=== PATIENT | female | born 1995 | race Two or more races ===

== ENCOUNTER 2022-11-22 11:56 | Observation (INO) | payer SELFPAY ==
[~2022-11-22] VITALS: Ht 167.6 cm; Wt 56.2 kg
[2022-11-22] MEDS ORDERED: PNV1TABL76 MT (12:21)
[2022-11-22] MEDS ORDERED: LACTATED RINGERS 500 ML IV ONE (12:30)
[2022-11-22] MEDS ORDERED: ACETAMINOPHEN 500MG TABLET PO PRN (12:30)
[2022-11-22 13:25] LABS: CLARITY URINE CLOUDY (CLEAR); COLOR URINE DARK YELLOW (YELLOW); KETONES URINE 4+ (NEGATIVE); LEUKOCYTE ESTERASE URINE 2+ (NEGATIVE); NITRITE URINE NEGATIVE (NEGATIVE); OCCULT BLOOD URINE NEGATIVE (NEGATIVE); PROTEIN URINE 1+ (NEGATIVE); SPECIFIC GRAVITY URINE 1.026 (1.005-1.030)
[2022-11-22] MEDS ORDERED: CITRIC ACID/SODIUM CITRATE SOLN 30ML UDC PO SCH (13:30)
[2022-11-22] MEDS ORDERED: LACTATED RINGERS 1,000 ML IV SCH (14:30)
[2022-11-22] MEDS ORDERED: CEFAZOLIN 2,000 MG in DEXT 5% WATER 100 ML IV NR (14:45)
[2022-11-22 15:30] LABS: *AMPHETAMINES SCREEN URINE NEGATIVE (NEGATIVE); *BARBITURATES SCREEN URINE NEGATIVE (NEGATIVE); *BENZODIAZEPINES SCREEN URINE NEGATIVE (NEGATIVE); *COCAINE SCREEN URINE NEGATIVE (NEGATIVE); METHADONE URINE SCREEN NEGATIVE (NEGATIVE); OPIATES URINE SCREEN NEGATIVE (NEGATIVE); PHENCYCLIDINE URINE SCREEN NEGATIVE (NEGATIVE)
[2022-11-22 15:56] LABS: CANNABINOID URINE SCREEN PRESUMTIVE POSITIVE (NEGATIVE)
[2022-11-28 04:07] LABS: CANNABINOID CONFIRMATION URINE Positive (.)
== END 2022-11-22 16:22 | disposition home or self-care (01) ==
LOC: 8 EST LDRP 11:56
PROVIDERS: ADMIT Obstetrics & Gynecology; ATTEND Obstetrics & Gynecology
DX: O26.893 Other specified pregnancy related conditions, third trimester (principal); R10.11 Right upper quadrant pain; O62.9 Abnormality of forces of labor, unspecified; O26.879 Cervical shortening, unspecified trimester; Z3A.34 34 weeks gestation of pregnancy; Z79.899 Other long term (current) drug therapy
CPT/HCPCS: 59025; 76705; 76805; 76818; 80305; 80349; 81003; 87086; 96365; G0378; J0690; J7060; 96360; 99281; J7120